=== PATIENT | male | born 1960 | race Asian ===

== ENCOUNTER 2022-05-16 13:10 | Emergency (ER) | payer SELFPAY ==
[~2022-05-16] VITALS: Ht 167.6 cm; Wt 61.7 kg
--- NOTE | 2022-05-16 14:08 | NUR ---
DR BRICENO AT BEDSIDE
[2022-05-16] MEDS ORDERED: LIDO30AD10 TP (14:15)
--- NOTE | 2022-05-16 16:16 | NUR ---
Patient discharged to home with Kiel Alexander in stable condition. Written and verbal after care instructions given. Patient and friend verbalizes understanding of instruction.
[2022-05-16 16:24] VITALS: BP 130/64
== END 2022-05-16 16:25 | disposition home or self-care (01) ==
LOC: ER 13:38
DX: S16.1XXA Strain of muscle, fascia and tendon at neck level, initial encounter (principal); Z79.899 Other long term (current) drug therapy; V49.9XXA Car occupant (driver) (passenger) injured in unspecified traffic accident, initial encounter; Y93.89 Activity, other specified; Y92.89 Other specified places as the place of occurrence of the external cause; Y99.8 Other external cause status